=== PATIENT | female | born 1965 | race Hispanic/Latino ===

== ENCOUNTER → 2023-09-17 | Outpatient (CLI) | payer BC | END | disposition home or self-care (01) | LOC: RAH 13:15 | PROVIDERS: ATTEND Internal Medicine | DX: Z12.31 Encounter for screening mammogram for malignant neoplasm of breast (principal); R92.323 Mammographic fibroglandular density, bilateral breasts | CPT/HCPCS: 77067 ==

== ENCOUNTER → 2024-10-27 | Outpatient (CLI) | payer BC | END | disposition home or self-care (01) | LOC: RAH 13:05 | PROVIDERS: ATTEND Internal Medicine | DX: Z12.31 Encounter for screening mammogram for malignant neoplasm of breast (principal) | CPT/HCPCS: 77067 ==

== ENCOUNTER → 2025-03-22 | Outpatient (CLI) | payer BC ==
--- NOTE | 2025-03-23 10:48 | HMCIMG ---
EXAM: CR LEFT KNEE WEIGHT-BEARING, 3 VIEWS CLINICAL HISTORY: Left knee pain. COMPARISON: None provided TECHNIQUE: Three views weight-bearing x-ray of the left knee was performed. FINDINGS: Bones: No fracture or dislocation. No sclerotic or destructive changes observed. There is spiking of the tibial intercondylar eminence present. Joints: Preservation of the joint space. There are small marginal osteophytes on the medial tibial and femoral condyles. Similar osteophytes represent along the superior and inferior poles of patella. Soft tissues: Unremarkable. IMPRESSION: 1. Osteoarthritis of the left knee with small marginal osteophytes at the medial tibiofemoral compartment and patellofemoral joint; Kellgren-Bennie grade 2 2. No acute osseous abnormality /[place]
--- NOTE | 2025-03-23 10:48 | HMCIMG ---
EXAM: CR RIGHT KNEE WEIGHT-BEARING, 3 VIEWS CLINICAL HISTORY: Right knee pain. COMPARISON: None provided TECHNIQUE: Three views weight-bearing x-ray of the right knee was performed. FINDINGS: Bones: No fracture or dislocation. No sclerotic or destructive changes observed. There is spiking of the tibial intercondylar eminence present. Joints: Preservation of the joint space. There are small marginal osteophytes on the medial tibial and femoral condyles. Similar osteophytes represent along the superior and inferior poles of patella. Soft tissues: Unremarkable. IMPRESSION: 1. Osteoarthritis of the right knee with small marginal osteophytes at the medial tibiofemoral compartment and patellofemoral joint; Kellgren-Bennie grade 2 2. No acute osseous abnormality /[place]
== END | disposition home or self-care (01) ==
LOC: RAH 15:28
PROVIDERS: ATTEND Internal Medicine
DX: M17.0 Bilateral primary osteoarthritis of knee (principal); M25.561 Pain in right knee; M25.562 Pain in left knee; M25.762 Osteophyte, left knee; M25.761 Osteophyte, right knee
CPT/HCPCS: 73562